=== PATIENT | female | born 1995 | race Caucasian/White ===

== ENCOUNTER 2017-10-03 23:37 | Inpatient (IN) | payer BC ==
[2017-10-04] MEDS ORDERED: Acetaminophen/Codeine 30-300mg Tablet PO PRN (00:12)
[2017-10-04] MEDS ORDERED: HYDROcodone/Acetaminophen 5/325 mg Tablet PO PRN (00:12)
[2017-10-04] MEDS ORDERED: Milk Of Magnesia 30 ML UDCUP PO PRN (00:12)
[2017-10-04] MEDS ORDERED: Bisacodyl 10 MG SUPP PR PRN (00:12)
[2017-10-04] MEDS ORDERED: Promethazine HCl 25 MG/ML VIAL IM PRN (00:12)
[2017-10-04] MEDS ORDERED: Ondansetron HCl/PF 4 MG/2 ML Vial IVP PRN (00:12)
[2017-10-04] MEDS ORDERED: diphenhydrAMINE 25 MG CAP PO PRN (00:12)
[2017-10-04] MEDS ORDERED: Benzocaine/Menthol 20-0.5% 60 ML CAN TOP PRN (00:12)
--- NOTE | 2017-10-04 00:19 | PDOC.OPDEL ---
OB Operative/Delivery Note Delivery Dr/Surgeon: Franklin Pre-Delivery Diagnosis: other (s/p controlled rapid delivery in ER) Procedure/Post Delivery Dx: other (same, 2 * MLE) Anesthesia: local - Additional Findings/Plan Placenta delivered: spontaneous Repaired Obstetrical Laceration: 2nd degree Estimated blood loss: 100 cc Compilations/Other Findings: Repaired in layers with 2-0 chromic. Pt. tolerated well. Post delivery plan: routine recovery
[2017-10-04] MEDS ORDERED: Adacel (T-DAP) 0.5 ML VIAL IM ONE (00:30)
[2017-10-04 00:45] VITALS: BMI 21.6
--- NOTE | 2017-10-04 01:27 | HP ---
DATE OF ADMISSION: 10/04/2017 REGULAR OB: Ana Cervantes D.O. ADMITTING PHYSICIAN: Marbin Reid M.D. HISTORY OF PRESENT ILLNESS: Ms. Cortez is a 21-year-old white G1, P0 with an estimated date of c onfinement of 10/14/2017, who I was called to see in the emergency room, as [facility]. Her care was reportedly uncomplicated with Dr. Cervantes. She stated that s he had been bernie since earlier in the evening. PAST MEDICAL HISTORY: Unremarkable. CURRENT MEDICATIONS: vitamins and iron. PAST SURGICAL HISTORY: None. ALLERGIES: She reports to cephalosporins, which give her hives. SOCIAL HISTORY: She denies tobacco or alcohol use. REVIEW OF SYSTEMS: Denies nausea, vomiting, fever, chills, or heavy vaginal bleeding. PHYSICAL EXAMINATION: In the ER shows her vital signs to be stable, she is afebrile. Her abdomen is gravid and nontender. On pelvic examination, the vertex is . With 3 pushes, she is a ble to successfully deliver over a small second-degree laceration. Cord was clamped and cut, and the baby was placed on the mom's abdomen. Baby was found to weigh 6 pounds 5 ounces male with Apgars 9 and 9. The placenta was then delivered intact. She had minimal bleeding. She was given 10 units of Pitocin IM. ASSESSMENT: Term-intrauterine , status post controlled rapid vaginal delivery in the emerge ncy room. PLAN: At this point, she will be taken up to labor and delivery for repair of her laceration.
[2017-10-04 01:39] LABS: Syphilis Antibody Nonreactive (Nonreactive); Syphilis Antibody Index 0.04 S/CO (<1.00 Non-Reactive)
[2017-10-04 01:41] LABS: HBSAg Index 0.15 S/CO (0-0.99); HIV (1/2) Antibody/Antigen Non-Reactive (NonReactive); HIV 1/2 INDEX 0.11 S/CO (<1.00); Hep B Surf Ag Non-Reactive S/CO (NonReactive)
[2017-10-04 01:56] LABS: Hemoglobin 13.1 g/dL (12.0-16.0); Mean Corpuscular HGB CONC 34.8 g/dL (32.0-36.0); Mean Corpuscular Hemoglobin 32.4 pg (25.0-35.0); Mean Corpuscular Volume 92.9 fl (77.0-87.0); Mean Platelet Volume 8.7 fL (7.4-10.4); Platelet Count 358 thou/uL (130-400); Red Blood Cell (RBC) Count 4.05 mill/uL (4.00-5.20)
[2017-10-04 05:54] LABS: Hemoglobin 11.8 g/dL (12.0-16.0); Mean Corpuscular HGB CONC 33.9 g/dL (32.0-36.0); Mean Corpuscular Hemoglobin 31.4 pg (25.0-35.0); Mean Corpuscular Volume 92.6 fl (77.0-87.0); Mean Platelet Volume 7.6 fL (7.4-10.4); Platelet Count 310 thou/uL (130-400); RBC Distribution Width 12.9 % (11.5-14.5); Red Blood Cell (RBC) Count 3.76 mill/uL (4.00-5.20); White Blood Cell (WBC) Count 24.2 thou/uL (4.8-10.8)
--- NOTE | 2017-10-04 06:22 | PDOC.PP ---
Post Progress Note Post Day #: PPD#1 Subjective: Resting comfortably. No c/o. PO intake tolerated: yes Flatus: yes Ambulation: yes Vital Signs (12 hours) Temp Pulse Resp 10/04/17 04:10 98.0 F 91 18 10/04/17 02:15 98.0 F 91 18 10/04/17 00:47 97.9 F 102 H 16 Weight Weight 58.967 kg - Physical Examination General: NAD Abdominal: no distention Fundus firm & at: below umbilicus Psychiatric: normal affect Result Diagrams: 10/04/17 05:28 Additional Labs: Post Labs Blood Type A POSITIVE 10/04/17 00:35 Hep Bs Antigen Non-Reactive S/CO (NonReactive) 10/04/17 00:35 - Assessment/Plan S/P rapid in ER with repair of MLE in L&D. Doing well. Routine PP care.
[2017-10-04] MEDS: Ibuprofen 800 MG TAB PO SCH ×3 (07:11→21:31)
[2017-10-04] MEDS: Docusate Calcium (SURFAK) 240 MG CAP PO SCH ×4 (09:12→21:31)
[2017-10-04] MEDS: Ferrous Sulfate 325 MG TAB PO SCH ×2 (09:12→16:30)
[2017-10-04 22:35] VITALS: BP 121/61; TEMP 98.2
[2017-10-05] MEDS: Ibuprofen 800 MG TAB PO SCH ×2 (06:18→14:26)
--- NOTE | 2017-10-05 08:28 | DIS ---
ADMITTING DIAGNOSIS: Precipitous delivery at term in the emergency room. DISCHARGE DIAGNOSIS: Precipitous delivery at term in the emergency room. CONSULTATIONS: None. PROCEDURE: Term spontaneous vaginal delivery with second degree repair. HOSPITAL COURSE: The patient is a 21-year-old G1 now P1 female who presented to the emergency room [facility]. She was delivered by Dr. Reid, the [employer] [facility] and subsequently transferred to Lab or and Delivery for a repair of her second-degree laceration and then to for ca re. She is now technically day 2, as she delivered on 10/03/2017. She reports that she i s tolerating p.o. well, ambulating, having good pain control, decreased lochia. PHYSICAL EXAMINATION: VITAL SIGNS: Her most recent vital signs, blood pressure is 121/61, temperature 98.2, pulse of 88, r espiratory rate of 18. GENERAL: She appears to be in no acute distress. She is alert and oriented, cooperative and pleasan t to interact with. HEENT: Normocephalic, atraumatic. ABDOMEN: Soft. Fundus is firm, 2 cm below the umbilicus. EXTREMITIES: Nontender, nonedematous. Her post-delivery hemoglobin was 11.8, hematocrit 34.8, platelets 310,000. The patient is being discharged to home today. She will be discharged with ibuprofen 800 mg to be ta tiera every 8 hours as needed for pain control. She has been given instructions to follow up with her primary OB, Dr. Cervantes as instructed by her office. She has been given instructions also [facility] if she experiences fever, increasing pain or bleeding.
[2017-10-05] MEDS: Docusate Calcium (SURFAK) 240 MG CAP PO SCH ×2 (09:39)
[2017-10-05] MEDS: Ferrous Sulfate 325 MG TAB PO SCH (09:39)
== END 2017-10-05 14:30 | disposition home or self-care (01) | DRG 775 ==
LOC: L&D/OP 23:37 → ERS 23:37 → L&D 23:38 → EDSTATUS 23:57 → UNDOADMIN 10-04 00:02 → L&D 10-04 00:02 → 3SE 10-04 02:36 → UNDODISIN 10-05 14:30
PROVIDERS: ADMIT Obstetrics & Gynecology; ATTEND Obstetrics & Gynecology
PROC: 10E0XZZ Delivery of Products of Conception, External Approach (ICD-10-PCS; principal; 2017-10-03)
PROC: 0KQM0ZZ Repair Perineum Muscle, Open Approach (ICD-10-PCS; 2017-10-03)
PROC: 3E033VJ Introduction of Other Hormone into Peripheral Vein, Percutaneous Approach (ICD-10-PCS; 2017-10-03)
DX: O70.1 Second degree perineal laceration during delivery (principal); Z37.0 Single live birth; O62.3 Precipitate labor; Z3A.38 38 weeks gestation of pregnancy
CPT/HCPCS: 36415; 59409; 85027; 86780; 87340; 87389; 96372; 99285